=== PATIENT | female | born 1960 | race African-American/Black ===

== ENCOUNTER 2017-03-29 03:00 | Inpatient (IN) | payer MEDICAID ==
[~2017-03-29] VITALS: Ht 172.7 cm; Wt 81.6 kg
[~2017-03-29 03:00] MED LIST: ASPI-1158; DIF15 PO; GUAI600T88 PO; HYDR1TAB4 PO; METH500T PO; NAPR-1176; PROIN3 IH
[2017-03-29] MEDS ORDERED: KETOROLAC 30MG/ML VIAL IV STA (03:35)
[2017-03-29 03:51] LABS: BASOPHILS % 0.9 % (0.0-2.0); EOSINOPHILS % 2.7 % (0.0-5.0); HEMATOCRIT. 36.3 % (36.0-48.0); HEMOGLOBIN. 11.9 g/dL (12.0-16.0); LYMPHOCYTES % 36.4 % (20.0-50.0); MEAN CORPUSCULAR HEMOGLOBIN 33.2 pg (28.0-32.0); MEAN CORPUSCULAR VOLUME 101.7 fL (81.0-99.0); MEAN PLATELET VOLUME 6.8 fl (7.4-10.4); MONOCYTES % 10.7 % (2.0-8.0); NEUTROPHILS % 49.3 % (40.0-76.0); PLATELET 257 x1000/uL (130-400); RED BLOOD CELL COUNT 3.57 mill/uL (4.2-5.4); RED CELL DISTRIBUTION WIDTH 15.6 % (11.6-14.6)
[2017-03-29 04:05] LABS: CARBON DIOXIDE 29 mEq/L (21-32); CHLORIDE 109 mEq/L (98-107); TROPONIN I < 0.02 ng/mL (0.00-0.04)
[2017-03-29] MEDS ORDERED: IOHEXOL-350 100 ML BOTTLE ONE (05:42)
[2017-03-29] MEDS ORDERED: NITROGLYCERIN OINT 1GM/INCH UDPKT TD ONE (06:30)
[2017-03-29 08:00] VITALS: BP 113/68
[2017-03-29 10:49] VITALS: BP 113/68
[2017-03-29] MEDS ORDERED: IMAT100T2 PO (10:49)
[2017-03-29] MEDS ORDERED: PNEUMOCOCCAL 23-VAL P-SAC VAC 0.5 ML IM ONE (11:00)
[2017-03-29] MEDS ORDERED: CLONIDINE 0.1MG TABLET PO PRN (11:45)
[2017-03-29] MEDS ORDERED: ONDANSETRON HCL 4MG/2ML VIAL IV PRN (11:45)
[2017-03-29] MEDS ORDERED: ACETAMINOPHEN 325MG TABLET PO PRN (11:45)
[2017-03-29] MEDS ORDERED: MAGNESIUM/ALUMINUM HYDROXIDE/SIMETHICONE 30ML UDC PO PRN (11:45)
[2017-03-29] MEDS ORDERED: DOCUSATE SODIUM 100MG CAPSULE PO PRN (11:45)
[2017-03-29] MEDS: ENOXAPARIN 40MG/0.4ML SYR SUBCUT SCH (11:54)
[2017-03-29] MEDS: ASPIRIN 81MG EC TABLET PO SCH (11:54)
[2017-03-29] MEDS: HYDROCODONE/ACETAMINOPHEN 5/325MG TABLET PO PRN ×3 (11:55→23:40)
[2017-03-29 12:14] VITALS: BP 126/75
[2017-03-29 15:56] VITALS: BP 126/46
[2017-03-29 16:51] LABS: CARBON DIOXIDE 32 mEq/L (21-32); CHLORIDE 104 mEq/L (98-107)
[2017-03-29 16:58] LABS: CLARITY URINE CLOUDY (CLEAR); COLOR URINE YELLOW (YELLOW); GLUCOSE URINE NEGATIVE (NEGATIVE); KETONES URINE NEGATIVE (NEGATIVE); LEUKOCYTE ESTERASE URINE 1+ (NEGATIVE); NITRITE URINE NEGATIVE (NEGATIVE); OCCULT BLOOD URINE NEGATIVE (NEGATIVE); PH URINE 6.5 (4.5-8.0); PROTEIN URINE NEGATIVE (NEGATIVE); SPECIFIC GRAVITY URINE 1.071 (1.005-1.030)
[2017-03-29 17:07] LABS: CREATINE KINASE 206 IU/L (26-192); TROPONIN I < 0.02 ng/mL (0.00-0.04)
[2017-03-29] MEDS: IPRATROPIUM/ALBUTEROL 0.5-3(2.5)MG/3ML NEB INH PRN (17:09)
[2017-03-29 17:10] LABS: *AMPHETAMINES SCREEN URINE NEGATIVE (NEGATIVE); *BARBITURATES SCREEN URINE NEGATIVE (NEGATIVE); *BENZODIAZEPINES SCREEN URINE NEGATIVE (NEGATIVE); *COCAINE SCREEN URINE NEGATIVE (NEGATIVE); CANNABINOID URINE SCREEN NEGATIVE (NEGATIVE); METHADONE URINE SCREEN NEGATIVE (NEGATIVE); OPIATES URINE SCREEN PRESUMTIVE POSITIVE (NEGATIVE); PHENCYCLIDINE URINE SCREEN NEGATIVE (NEGATIVE)
[2017-03-29 20:00] VITALS: BP 101/65
[2017-03-30] VITALS: BP 109/62
[2017-03-30 00:57] LABS: CREATINE KINASE 215 IU/L (26-192); CREATINE KINASE MB FRACTION 1.7 ng/mL (0.5-3.6); TOTAL IRON BINDING CAPACITY 369 ug/dL (250-450); TROPONIN I < 0.02 ng/mL (0.00-0.04)
[2017-03-30 01:03] LABS: C REACTIVE PROTEIN QUANT 6.1 mg/L (0.0-3.0); HAPTOGLOBIN 73 mg/dL (30-200)
[2017-03-30 04:00] VITALS: BP 137/83
[2017-03-30 08:16] VITALS: BP 128/77
[2017-03-30] MEDS ORDERED: IMATINIB MESYLATE 100 MG PO SCH (09:00)
[2017-03-30] MEDS: ASPIRIN 81MG EC TABLET PO SCH (10:16)
[2017-03-30] MEDS: HYDROCODONE/ACETAMINOPHEN 5/325MG TABLET PO PRN ×2 (10:17→16:15)
[2017-03-30 12:00] VITALS: BP 157/82
[2017-03-30] MEDS: IPRATROPIUM/ALBUTEROL 0.5-3(2.5)MG/3ML NEB INH PRN (12:24)
[2017-03-30] MEDS: ENOXAPARIN 40MG/0.4ML SYR SUBCUT SCH (13:15)
[2017-03-30 16:00] VITALS: BP 114/66
[2017-03-30 19:46] VITALS: BP 126/57
[2017-03-31 00:27] VITALS: BP 102/53
[2017-03-31 04:34] VITALS: BP 112/61
[2017-03-31 06:36] LABS: BASOPHILS % 0.7 % (0.0-2.0); EOSINOPHILS % 2.8 % (0.0-5.0); HEMATOCRIT. 37.1 % (36.0-48.0); HEMOGLOBIN. 12.4 g/dL (12.0-16.0); LYMPHOCYTES % 45.8 % (20.0-50.0); MEAN CORPUSCULAR HEMOGLOBIN 34.4 pg (28.0-32.0); MEAN PLATELET VOLUME 7.2 fl (7.4-10.4); MONOCYTES % 11.1 % (2.0-8.0); NEUTROPHILS % 39.6 % (40.0-76.0); PLATELET 256 x1000/uL (130-400); RED CELL DISTRIBUTION WIDTH 15.6 % (11.6-14.6)
[2017-03-31 06:54] LABS: CHLORIDE 105 mEq/L (98-107); HDL CHOLESTEROL 109 mg/dL (40-59); LDL CHOLESTEROL 75 mg/dL (5-100)
[2017-03-31 07:25] LABS: CARBON DIOXIDE 31 mEq/L (21-32)
[2017-03-31 08:00] VITALS: BP 117/76
[2017-03-31 08:10] VITALS: BP 117/76
[2017-03-31] MEDS: ASPIRIN 81MG EC TABLET PO SCH ×2 (08:45→08:49)
[2017-03-31 10:01] LABS: FOLIC ACID (FOLATE) SERUM 17.2 ng/mL (>5.38)
== END 2017-03-31 09:30 | disposition left against medical advice (07) | DRG 203 ==
LOC: ER 03:01 → 6WST 05:27 → EDBEDREQ 05:30 → EDBEDREQTM 05:30 → ENRESERV 07:03
PROVIDERS: ADMIT Internal Medicine; ATTEND Internal Medicine
DX: M94.0 Chondrocostal junction syndrome [Tietze] (principal); C92.10 Chronic myeloid leukemia, BCR/ABL-positive, not having achieved remission; I24.9 Acute ischemic heart disease, unspecified; N28.1 Cyst of kidney, acquired; N39.0 Urinary tract infection, site not specified; D63.8 Anemia in other chronic diseases classified elsewhere; Z53.21 Procedure and treatment not carried out due to patient leaving prior to being seen by health care provider; J44.9 Chronic obstructive pulmonary disease, unspecified; Z79.82 Long term (current) use of aspirin; Z82.49 Family history of ischemic heart disease and other diseases of the circulatory system; Z88.5 Allergy status to narcotic agent; Z80.9 Family history of malignant neoplasm, unspecified; Z79.899 Other long term (current) drug therapy
CPT/HCPCS: 36415; 71010; 71275; 76700; 80048; 80053; 80061; 80305; 81001; 82247; 82248; 82550; 82553; 82607; 82728; 82746; 82784; 83010; 83540; 83550; 83615; 83735; 83880; 84443; 84484; 85025; 85044; 85651; 86140; 87086; 93005; 93306; 93970; 94640; 96374; 99285; J1650; J1885; J7620; Q9967

== ENCOUNTER 2018-08-20 08:19 | Inpatient (IN) | payer MEDICAID ==
[~2018-08-20] VITALS: Ht 172.7 cm; Wt 111.3 kg
[~2018-08-20 08:19] MED LIST changes: -DIF15 PO; -GUAI600T88 PO; +IMAT100T2 PO; -METH500T PO
[2018-08-20] MEDS ORDERED: ASPIRIN 81MG TABLET PO ONE (08:45)
[2018-08-20 08:57] LABS: BASOPHILS % 0.6 % (0.0-2.0); EOSINOPHILS % 1.6 % (0.0-5.0); HEMOGLOBIN. 13.5 g/dL (12.0-16.0); LYMPHOCYTES % 17.5 % (20.0-50.0); MEAN CORPUSCULAR HEMOGLOBIN 33.8 pg (28.0-32.0); MEAN CORPUSCULAR VOLUME 100.1 fL (81.0-99.0); MEAN PLATELET VOLUME 6.9 fl (7.4-10.4); MONOCYTES % 11.1 % (2.0-8.0); NEUTROPHILS % 69.2 % (40.0-76.0); PLATELET 296 x1000/uL (130-400); RED CELL DISTRIBUTION WIDTH 15.2 % (11.6-14.6)
[2018-08-20 09:03] LABS: CHLORIDE 111 mEq/L (98-107)
[2018-08-20 09:07] LABS: D-DIMER 1.38 mg/L FEU (<0.50); PARTIAL THROMBOPLASTIN TIME 28.2 sec (23.4-31.0); PROTHROMBIN TIME 10.3 sec (9.6-11.0)
[2018-08-20] MEDS: NITROGLYCERIN 0.4MG TABLET SL SL PRN ×2 (09:48→11:28)
[2018-08-20] MEDS ORDERED: IPRATROPIUM/ALBUTEROL 0.5-3(2.5)MG/3ML NEB INH PRN (10:15)
[2018-08-20] MEDS ORDERED: GUAIFENESIN 200MG/10ML SUGAR FREE UDC PO PRN (10:15)
[2018-08-20] MEDS ORDERED: DOCUSATE SODIUM 100MG CAPSULE PO PRN (10:15)
[2018-08-20] MEDS ORDERED: MAGNESIUM/ALUMINUM HYDROXIDE/SIMETHICONE 30ML UDC PO PRN (10:15)
[2018-08-20] MEDS ORDERED: DIPHENHYDRAMINE 50MG/ML VIAL IV PRN (10:15)
[2018-08-20] MEDS ORDERED: CLONIDINE 0.1MG TABLET PO PRN (10:15)
[2018-08-20] MEDS ORDERED: IOHEXOL-350 100 ML BOTTLE ONE (10:21)
[2018-08-20 10:24] LABS: PHOSPHORUS 2.6 mg/dL (2.5-4.9)
[2018-08-20] MEDS ORDERED: ENOXAPARIN 40MG/0.4ML SYR SUBCUT SCH (11:00)
[2018-08-20] MEDS: ENOXAPARIN 30MG/0.3ML SYR SUBCUT SCH ×2 (11:41→21:02)
[2018-08-20] MEDS: ACETAMINOPHEN 325MG TABLET PO PRN ×3 (11:42→17:43)
[2018-08-20 13:15] VITALS: BP 143/89
[2018-08-20 13:30] VITALS: BP 143/89
[2018-08-20] MEDS ORDERED: NIFE30TA83 PO (15:43)
[2018-08-20 16:22] VITALS: BP 132/69
[2018-08-20] MEDS: ONDANSETRON HCL 4MG/2ML INJ IV PRN (16:30)
[2018-08-20] MEDS: MORPHINE SULFATE 4 MG/ML CPJ (NOT FOR IM USE) IV PRN ×2 (16:34→21:03)
[2018-08-20] MEDS ORDERED: IMAT100T9 PO (16:46)
[2018-08-20 20:00] VITALS: BP 124/74
[2018-08-21] VITALS (7 sets, daily range): BP systolic 112–144; BP diastolic 77–89
[2018-08-21] MEDS: MORPHINE SULFATE 4 MG/ML CPJ (NOT FOR IM USE) IV PRN ×5 (01:20→23:02)
[2018-08-21 06:25] LABS: BASOPHILS % 0.8 % (0.0-2.0); EOSINOPHILS % 2.1 % (0.0-5.0); HEMATOCRIT. 38.3 % (36.0-48.0); HEMOGLOBIN. 12.9 g/dL (12.0-16.0); MEAN CORPUSCULAR HEMOGLOBIN 33.7 pg (28.0-32.0); MEAN CORPUSCULAR VOLUME 100.3 fL (81.0-99.0); MONOCYTES % 13.5 % (2.0-8.0); NEUTROPHILS % 51.6 % (40.0-76.0); PLATELET 265 x1000/uL (130-400); RED BLOOD CELL COUNT 3.82 mill/uL (4.2-5.4); RED CELL DISTRIBUTION WIDTH 15.3 % (11.6-14.6)
[2018-08-21 06:38] LABS: CHLORIDE 107 mEq/L (98-107)
[2018-08-21 06:51] LABS: HDL CHOLESTEROL 97 mg/dL (40-59)
[2018-08-21 07:10] LABS: LDL CHOLESTEROL 78 mg/dL (5-100)
[2018-08-21] MEDS: ENOXAPARIN 30MG/0.3ML SYR SUBCUT SCH ×2 (08:31→20:49)
[2018-08-21] MEDS: ONDANSETRON HCL 4MG/2ML INJ IV PRN ×3 (08:31→14:07)
[2018-08-21] MEDS: IMATINIB MESYLATE 100 MG TABLET PO SCH (08:31)
[2018-08-22] VITALS: BP 140/83
[2018-08-22 04:00] VITALS: BP 118/87
[2018-08-22 08:00] VITALS: BP 122/95
[2018-08-22] MEDS: ENOXAPARIN 30MG/0.3ML SYR SUBCUT SCH (08:11)
[2018-08-22] MEDS: IMATINIB MESYLATE 100 MG TABLET PO SCH (08:11)
[2018-08-22] MEDS ORDERED: ASPIRIN 81MG TABLET PO SCH (09:00)
[2018-08-22] MEDS ORDERED: REGADENOSON 0.4 MG/5 ML IV ONE ×2 (09:18→13:15)
[2018-08-22 11:20] VITALS: BP 122/95
== END 2018-08-22 11:55 | disposition home or self-care (01) | DRG 203 ==
LOC: ER 08:36 → 8WST 10:43 → EDBEDREQ 10:46 → ENRESERV 12:07
PROVIDERS: ADMIT Internal Medicine; ATTEND Internal Medicine
DX: M94.0 Chondrocostal junction syndrome [Tietze] (principal); C92.10 Chronic myeloid leukemia, BCR/ABL-positive, not having achieved remission; D70.9 Neutropenia, unspecified; E87.8 Other disorders of electrolyte and fluid balance, not elsewhere classified; E83.51 Hypocalcemia; K76.0 Fatty (change of) liver, not elsewhere classified; R06.02 Shortness of breath; I10 Essential (primary) hypertension; J45.909 Unspecified asthma, uncomplicated; R79.1 Abnormal coagulation profile; Z82.49 Family history of ischemic heart disease and other diseases of the circulatory system; Z92.21 Personal history of antineoplastic chemotherapy; Z79.899 Other long term (current) drug therapy; Z79.82 Long term (current) use of aspirin; Z88.5 Allergy status to narcotic agent
CPT/HCPCS: 36415; 71045; 71275; 80061; 83735; 83880; 84100; 84443; 84484; 85379; 93005; 93306; 93970; 96374; 97161; 99285; J1650; J2270; J2405; J2785; Q9967

== ENCOUNTER 2018-09-10 17:02 | Inpatient (IN) | payer MEDICAID ==
[~2018-09-10] VITALS: Ht 172.7 cm; Wt 109.3 kg
[~2018-09-10 17:02] MED LIST changes: -IMAT100T2 PO; +IMAT100T9 PO; +NIFE30TA83 PO
[2018-09-10] MEDS ORDERED: ONDANSETRON HCL 4MG/2ML INJ IV STA (17:21)
[2018-09-10] MEDS ORDERED: SODIUM CHLORIDE 0.9% 1,000 ML IV ONE (17:21)
[2018-09-10 17:31] LABS: BASOPHILS % 0.5 % (0.0-2.0); EOSINOPHILS % 0.4 % (0.0-5.0); HEMATOCRIT. 36.3 % (36.0-48.0); HEMOGLOBIN. 12.2 g/dL (12.0-16.0); LYMPHOCYTES % 12.4 % (20.0-50.0); MEAN CORPUSCULAR HEMOGLOBIN 34.1 pg (28.0-32.0); MEAN CORPUSCULAR VOLUME 101.6 fL (81.0-99.0); MEAN PLATELET VOLUME 7.6 fl (7.4-10.4); MONOCYTES % 6.3 % (2.0-8.0); NEUTROPHILS % 80.4 % (40.0-76.0); PLATELET 243 x1000/uL (130-400); RED BLOOD CELL COUNT 3.58 mill/uL (4.2-5.4); RED CELL DISTRIBUTION WIDTH 16.8 % (11.6-14.6)
[2018-09-10 17:36] LABS: CHLORIDE 102 mEq/L (98-107)
[2018-09-10 17:39] LABS: CLARITY URINE TURBID (CLEAR); COLOR URINE YELLOW (YELLOW); KETONES URINE 1+ (NEGATIVE); LEUKOCYTE ESTERASE URINE 3+ (NEGATIVE); NITRITE URINE NEGATIVE (NEGATIVE); OCCULT BLOOD URINE TRACE (NEGATIVE); PH URINE 5.5 (4.5-8.0); PROTEIN URINE NEGATIVE (NEGATIVE); SPECIFIC GRAVITY URINE 1.006 (1.005-1.030); UROBILINOGEN URINE 0.2 E.U./dL (0.2-1.0)
[2018-09-10 17:40] LABS: ETHANOL BLOOD 21 mg/dL
[2018-09-10 17:43] LABS: LDL CHOLESTEROL 79 mg/dL (5-100)
[2018-09-10 17:51] LABS: CANNABINOID URINE SCREEN NEGATIVE (NEGATIVE); OPIATES URINE SCREEN NEGATIVE (NEGATIVE); PHENCYCLIDINE URINE SCREEN NEGATIVE (NEGATIVE)
[2018-09-10 17:52] LABS: *AMPHETAMINES SCREEN URINE NEGATIVE (NEGATIVE); *BARBITURATES SCREEN URINE NEGATIVE (NEGATIVE); *BENZODIAZEPINES SCREEN URINE NEGATIVE (NEGATIVE); *COCAINE SCREEN URINE NEGATIVE (NEGATIVE); METHADONE URINE SCREEN NEGATIVE (NEGATIVE)
[2018-09-10] MEDS ORDERED: ASPIRIN 325MG TABLET PO ONE (18:30)
[2018-09-10] MEDS ORDERED: KETOROLAC 30MG/ML VIAL IV ONE (19:00)
[2018-09-10] MEDS ORDERED: MORPHINE SULFATE 4 MG/ML CPJ (NOT FOR IM USE) IV ONE (19:00)
[2018-09-10] MEDS ORDERED: CEFTRIAXONE 1 G PREMIX 50 ML IV ONE (19:00)
[2018-09-10] MEDS ORDERED: HYDROCODONE/ACETAMINOPHEN 5/325MG TABLET PO ONE (21:50)
[2018-09-10 22:30] VITALS: BP 113/65
[2018-09-10 22:49] VITALS: BP 113/65
[2018-09-11 04:00] VITALS: BP 97/48
[2018-09-11 08:00] VITALS: BP 110/65
[2018-09-11 09:17] LABS: BASOPHILS % 0.7 % (0.0-2.0); EOSINOPHILS % 1.4 % (0.0-5.0); HEMATOCRIT. 32.3 % (36.0-48.0); LYMPHOCYTES % 12.3 % (20.0-50.0); MEAN CORPUSCULAR HEMOGLOBIN 34.8 pg (28.0-32.0); MEAN CORPUSCULAR VOLUME 101.8 fL (81.0-99.0); MEAN PLATELET VOLUME 7.8 fl (7.4-10.4); MONOCYTES % 10.5 % (2.0-8.0); NEUTROPHILS % 75.1 % (40.0-76.0); PLATELET 204 x1000/uL (130-400); RED BLOOD CELL COUNT 3.17 mill/uL (4.2-5.4); RED CELL DISTRIBUTION WIDTH 17.6 % (11.6-14.6)
[2018-09-11 10:02] LABS: CHLORIDE 106 mEq/L (98-107)
[2018-09-11 10:10] LABS: CREATINE KINASE 359 IU/L (26-192)
[2018-09-11 10:13] LABS: CREATINE KINASE MB FRACTION 2.3 ng/mL (0.5-3.6)
[2018-09-11] MEDS: HYDROCODONE/ACETAMINOPHEN 5/325MG TABLET PO PRN ×3 (11:41→22:48)
[2018-09-11] MEDS: THIAMINE HCL 100MG TABLET PO SCH (11:50)
[2018-09-11] MEDS: MULTIVITAMINS,THER W-MINERALS TABLET PO SCH (11:50)
[2018-09-11] MEDS: FOLIC ACID 1MG TABLET PO SCH (11:50)
[2018-09-11] MEDS: CLOPIDOGREL 75MG TABLET PO SCH (11:50)
[2018-09-11 12:00] VITALS: BP 116/78
[2018-09-11] MEDS ORDERED: CLONIDINE 0.1MG TABLET PO PRN (12:00)
[2018-09-11] MEDS ORDERED: LORAZEPAM 2MG/ML CPJ IV SCH (13:30)
[2018-09-11] MEDS: ENOXAPARIN 30MG/0.3ML SYR SUBCUT SCH (15:22)
[2018-09-11 16:00] VITALS: BP 165/98
[2018-09-11 20:00] VITALS: BP 115/68
[2018-09-11 22:10] LABS: T4 FREE 1.07 ng/dL (0.76-1.46)
[2018-09-11 23:06] LABS: VITAMIN B12 SERUM 197 pg/mL (211-911)
[2018-09-11 23:11] LABS: FOLIC ACID (FOLATE) SERUM > 20.00 ng/mL (>5.38)
[2018-09-11 23:49] VITALS: BP 98/71
[2018-09-12 08:00] VITALS: BP 106/65
[2018-09-12] MEDS: MULTIVITAMINS,THER W-MINERALS TABLET PO SCH (09:07)
[2018-09-12] MEDS: CLOPIDOGREL 75MG TABLET PO SCH (09:07)
[2018-09-12] MEDS: THIAMINE HCL 100MG TABLET PO SCH (09:08)
[2018-09-12] MEDS: ENOXAPARIN 30MG/0.3ML SYR SUBCUT SCH ×2 (09:08→20:42)
[2018-09-12] MEDS: FOLIC ACID 1MG TABLET PO SCH (09:08)
[2018-09-12 09:29] LABS: LDL CHOLESTEROL 67 mg/dL (5-100)
[2018-09-12 09:31] LABS: CREATINE KINASE 296 IU/L (26-192); HDL CHOLESTEROL 101 mg/dL (40-59)
[2018-09-12 09:32] LABS: CREATINE KINASE MB FRACTION 1.5 ng/mL (0.5-3.6)
[2018-09-12] MEDS ORDERED: LORAZEPAM 2MG/ML CPJ IV NR (10:00)
[2018-09-12 12:00] VITALS: BP 110/65
[2018-09-12] MEDS: HYDROCODONE/ACETAMINOPHEN 5/325MG TABLET PO PRN ×2 (15:40→20:43)
[2018-09-12 16:00] VITALS: BP 115/68
[2018-09-12 20:00] VITALS: BP 116/76
[2018-09-13] VITALS: BP 118/68
[2018-09-13 04:00] VITALS: BP 110/56
[2018-09-13 08:59] VITALS: BP 95/64
[2018-09-13] MEDS ORDERED: CYANOCOBALAMIN 1000MCG/ML VIAL IM SCH (09:00)
[2018-09-13] MEDS: ENOXAPARIN 30MG/0.3ML SYR SUBCUT SCH (09:01)
[2018-09-13] MEDS: MULTIVITAMINS,THER W-MINERALS TABLET PO SCH (09:01)
[2018-09-13] MEDS: CLOPIDOGREL 75MG TABLET PO SCH (09:01)
[2018-09-13] MEDS: THIAMINE HCL 100MG TABLET PO SCH (09:01)
[2018-09-13] MEDS: FOLIC ACID 1MG TABLET PO SCH (09:01)
[2018-09-13] MEDS: HYDROCODONE/ACETAMINOPHEN 5/325MG TABLET PO PRN (09:28)
[2018-09-13 12:39] VITALS: BP 115/81
[2018-09-13 13:08] VITALS: BP 115/81
[2018-09-13] MEDS ORDERED: ATORVASTATIN CALCIUM 10MG TABLET PO SCH (21:00)
== END 2018-09-13 14:58 | disposition home or self-care (01) | DRG 47 ==
LOC: ER 17:02 → 6WST 21:14 → EDBEDREQTM 21:15 → EDBEDREQSVC 21:15 → EDBEDREQ 21:15 → ENRESERV 21:33
PROVIDERS: ADMIT Internal Medicine; ATTEND Internal Medicine
DX: G45.9 Transient cerebral ischemic attack, unspecified (principal); C92.10 Chronic myeloid leukemia, BCR/ABL-positive, not having achieved remission; I10 Essential (primary) hypertension; R60.0 Localized edema; J45.909 Unspecified asthma, uncomplicated; F10.220 Alcohol dependence with intoxication, uncomplicated; Y90.1 Blood alcohol level of 20-39 mg/100 ml; E53.8 Deficiency of other specified B group vitamins; F80.81 Childhood onset fluency disorder; Z86.73 Personal history of transient ischemic attack (TIA), and cerebral infarction without residual deficits
CPT/HCPCS: 36415; 70544; 70553; 71045; 80061; 80305; 80320; 82550; 82553; 82607; 82746; 82962; 83036; 83721; 83880; 84439; 84443; 84481; 84484; 92523; 92610; 93005; 93880; 93971; 96374; 96375; 97116; 97162; 97166; 99285; J0696; J1650; J1885; J2060; J2270; J2405; J3420; J7030; G0480

== ENCOUNTER 2018-11-11 06:44 | Emergency (ER) | payer MEDICAID ==
[~2018-11-11] VITALS: Ht 165.1 cm; Wt 96.0 kg
[~2018-11-11 06:44] MED LIST changes: -NAPR-1176
[2018-11-11] MEDS ORDERED: SODIUM CHLORIDE 0.9% 1,000 ML IV ONE (06:58)
[2018-11-11 07:59] LABS: CLARITY URINE CLEAR (CLEAR); COLOR URINE YELLOW (YELLOW); KETONES URINE 1+ (NEGATIVE); LEUKOCYTE ESTERASE URINE 1+ (NEGATIVE); NITRITE URINE NEGATIVE (NEGATIVE); OCCULT BLOOD URINE NEGATIVE (NEGATIVE); PROTEIN URINE TRACE (NEGATIVE); SPECIFIC GRAVITY URINE 1.011 (1.005-1.030)
[2018-11-11 08:35] LABS: BASOPHILS % 1.4 % (0.0-2.0); EOSINOPHILS % 1.1 % (0.0-5.0); HEMATOCRIT. 38.7 % (36.0-48.0); HEMOGLOBIN. 13.5 g/dL (12.0-16.0); LYMPHOCYTES % 22.4 % (20.0-50.0); MEAN CORPUSCULAR HEMOGLOBIN 37.2 pg (28.0-32.0); MEAN CORPUSCULAR VOLUME 106.8 fL (81.0-99.0); MEAN PLATELET VOLUME 7.7 fl (7.4-10.4); NEUTROPHILS % 65.1 % (40.0-76.0); PLATELET 308 x1000/uL (130-400); RED BLOOD CELL COUNT 3.63 mill/uL (4.2-5.4); RED CELL DISTRIBUTION WIDTH 19.3 % (11.6-14.6)
[2018-11-11 08:41] LABS: CHLORIDE 104 mEq/L (98-107)
[2018-11-11] MEDS ORDERED: METOCLOPRAMIDE HCL 10MG/2ML VIAL IV ONE (08:45)
[2018-11-11] MEDS ORDERED: KETOROLAC 30MG/ML VIAL IV ONE (08:45)
[2018-11-11 09:49] VITALS: BP 128/85
== END 2018-11-11 10:07 | disposition home or self-care (01) ==
LOC: ER 06:44
DX: R51 Headache (principal); R20.2 Paresthesia of skin; J45.909 Unspecified asthma, uncomplicated; I10 Essential (primary) hypertension; Z98.890 Other specified postprocedural states; Z79.899 Other long term (current) drug therapy; Z80.6 Family history of leukemia; Z85.6 Personal history of leukemia; Z85.819 Personal history of malignant neoplasm of unspecified site of lip, oral cavity, and pharynx
CPT/HCPCS: 36415; 70450; 71045; 80053; 81003; 85025; 85610; 96374; 96375; 99284; J1885; J2765; J7030

== ENCOUNTER 2018-11-13 13:09 | Inpatient (IN) | payer MEDICAID ==
[~2018-11-13] VITALS: Ht 172.7 cm; Wt 99.8 kg
[2018-11-13] MEDS ORDERED: METHYLPREDNISOLONE SOD SUCC 125 MG/2 ML VIAL IV STA (13:42)
[2018-11-13] MEDS ORDERED: ONDANSETRON HCL 4MG/2ML INJ IV ONE (13:45)
[2018-11-13] MEDS ORDERED: IPRATROPIUM/ALBUTEROL 0.5-3(2.5)MG/3ML NEB HHN ONE (13:45)
[2018-11-13] MEDS ORDERED: MORPHINE SULFATE 4 MG/ML CPJ (NOT FOR IM USE) IV ONE (13:45)
[2018-11-13] MEDS ORDERED: LEVOFLOXACIN 750MG PREMIX 150 ML IV ONE (13:45)
[2018-11-13 14:13] LABS: EOSINOPHILS % 0.9 % (0.0-5.0); HEMOGLOBIN. 13.4 g/dL (12.0-16.0); LYMPHOCYTES % 16.4 % (20.0-50.0); MEAN CORPUSCULAR HEMOGLOBIN 36.7 pg (28.0-32.0); MEAN CORPUSCULAR VOLUME 106.7 fL (81.0-99.0); MEAN PLATELET VOLUME 7.9 fl (7.4-10.4); MONOCYTES % 9.7 % (2.0-8.0); PLATELET 303 x1000/uL (130-400); RED BLOOD CELL COUNT 3.65 mill/uL (4.2-5.4); RED CELL DISTRIBUTION WIDTH 19.2 % (11.6-14.6)
[2018-11-13 14:20] LABS: CHLORIDE 104 mEq/L (98-107)
[2018-11-13 14:21] LABS: PROTHROMBIN TIME 9.9 sec (9.6-11.0)
[2018-11-13] MEDS ORDERED: NITROGLYCERIN 0.4MG TABLET SL SL PRN (15:00)
[2018-11-13] MEDS ORDERED: ASPIRIN 81MG TABLET PO ONE (15:00)
[2018-11-13 15:25] LABS: CLARITY URINE CLOUDY (CLEAR); COLOR URINE YELLOW (YELLOW); KETONES URINE 1+ (NEGATIVE); LEUKOCYTE ESTERASE URINE 2+ (NEGATIVE); NITRITE URINE NEGATIVE (NEGATIVE); OCCULT BLOOD URINE TRACE (NEGATIVE); PH URINE 6.5 (4.5-8.0); PROTEIN URINE NEGATIVE (NEGATIVE); SPECIFIC GRAVITY URINE 1.009 (1.005-1.030)
[2018-11-13] MEDS ORDERED: IMAT400T2 PO (19:49)
[2018-11-13] MEDS ORDERED: IMAT400T2 MT (19:49)
[2018-11-13 20:00] VITALS: BP 140/82
[2018-11-13] MEDS ORDERED: MORPHINE SULFATE 2 MG/ML CPJ (NOT FOR IM USE) IV PRN (20:45)
[2018-11-13] MEDS ORDERED: ENOXAPARIN 30MG/0.3ML SYR SUBCUT SCH (21:00)
[2018-11-13] MEDS: BACLOFEN 10MG TABLET PO SCH (21:53)
[2018-11-13] MEDS: METOPROLOL TARTRATE 50MG TABLET PO SCH (21:53)
[2018-11-13] MEDS: ENOXAPARIN 30MG/0.3ML SYR SUBCUT SCH (21:58)
[2018-11-13] MEDS: NITROGLYCERIN OINT 1GM/INCH UDPKT TD SCH (22:00)
[2018-11-14] VITALS: BP 132/86
[2018-11-14] MEDS: IPRATROPIUM/ALBUTEROL 0.5-3(2.5)MG/3ML NEB HHN SCH ×3 (01:07→08:45)
[2018-11-14 04:00] VITALS: BP 121/69
[2018-11-14] MEDS: BACLOFEN 10MG TABLET PO SCH (05:07)
[2018-11-14] MEDS: NITROGLYCERIN OINT 1GM/INCH UDPKT TD SCH (05:08)
[2018-11-14 08:39] VITALS: BP 114/72
[2018-11-14] MEDS ORDERED: ASPIRIN 325MG EC TABLET PO SCH (09:00)
[2018-11-14] MEDS: ENOXAPARIN 30MG/0.3ML SYR SUBCUT SCH (09:00)
[2018-11-14] MEDS: METOPROLOL TARTRATE 50MG TABLET PO SCH (09:32)
[2018-11-14 09:42] LABS: HEMATOCRIT. 36.8 % (36.0-48.0); HEMOGLOBIN. 12.5 g/dL (12.0-16.0); MEAN CORPUSCULAR HEMOGLOBIN 36.8 pg (28.0-32.0); MEAN CORPUSCULAR VOLUME 108.6 fL (81.0-99.0); MEAN PLATELET VOLUME 7.7 fl (7.4-10.4); PLATELET 271 x1000/uL (130-400); RED BLOOD CELL COUNT 3.39 mill/uL (4.2-5.4); RED CELL DISTRIBUTION WIDTH 19.9 % (11.6-14.6)
[2018-11-14 09:53] LABS: CHLORIDE 105 mEq/L (98-107)
[2018-11-14 10:04] LABS: LDL CHOLESTEROL 98 mg/dL (5-100)
[2018-11-14 10:06] LABS: HDL CHOLESTEROL 107 mg/dL (40-59)
[2018-11-14] MEDS ORDERED: BENZONATATE 100MG CAPSULE PO PRN (10:30)
[2018-11-14] MEDS ORDERED: METHYLPREDNISOLONE SOD SUCC 40 MG/ML VIAL IV SCH (11:00)
[2018-11-14 12:02] VITALS: BP 112/73
[2018-11-14 12:21] VITALS: BP 112/73
[2018-11-14] MEDS ORDERED: FLUCONAZOLE 150MG TABLET PO NR (13:00)
[2018-11-14 13:04] LABS: PLATELET ESTIMATE NORMAL
[2018-11-14 14:58] LABS: *AMPHETAMINES SCREEN URINE NEGATIVE (NEGATIVE); *BARBITURATES SCREEN URINE NEGATIVE (NEGATIVE); *BENZODIAZEPINES SCREEN URINE NEGATIVE (NEGATIVE); *COCAINE SCREEN URINE NEGATIVE (NEGATIVE); METHADONE URINE SCREEN NEGATIVE (NEGATIVE); OPIATES URINE SCREEN PRESUMTIVE POSITIVE (NEGATIVE)
[2018-11-14 14:59] LABS: CANNABINOID URINE SCREEN NEGATIVE (NEGATIVE); PHENCYCLIDINE URINE SCREEN NEGATIVE (NEGATIVE)
== END 2018-11-14 12:30 | disposition home or self-care (01) | DRG 133 ==
LOC: ER 14:13 → EDBEDREQ 16:09 → EDBEDREQTM 16:09 → ENRESERV 17:19 → ER 18:42 → CANBEDREQ 18:48 → 8WST 20:27
PROVIDERS: ADMIT Internal Medicine; ATTEND Internal Medicine
DX: J96.01 Acute respiratory failure with hypoxia (principal); C95.90 Leukemia, unspecified not having achieved remission; M94.0 Chondrocostal junction syndrome [Tietze]; I10 Essential (primary) hypertension; J45.901 Unspecified asthma with (acute) exacerbation; E66.9 Obesity, unspecified; Z86.73 Personal history of transient ischemic attack (TIA), and cerebral infarction without residual deficits; Z68.33 Body mass index [BMI] 33.0-33.9, adult; Z71.3 Dietary counseling and surveillance; Z79.899 Other long term (current) drug therapy; Z80.9 Family history of malignant neoplasm, unspecified; Z82.49 Family history of ischemic heart disease and other diseases of the circulatory system; Z79.82 Long term (current) use of aspirin
CPT/HCPCS: 36415; 71045; 80048; 80061; 80305; 83605; 83880; 84484; 93005; 94640; 96365; 96366; 96375; 99285; J1650; J1956; J2270; J2405; J2930; J7620

== ENCOUNTER 2019-08-01 10:16 | Inpatient (IN) | payer MEDICAID ==
[~2019-08-01] VITALS: Ht 172.7 cm; Wt 113.4 kg
[~2019-08-01 10:16] MED LIST changes: -ASPI-1158; +ASPI-1158 PO; +IMAT400T2 MT; +IMAT400T2 PO; +NIFE-33 PO; -NIFE30TA83 PO
[2019-08-01] MEDS ORDERED: SODIUM CHLORIDE 0.9% 500 ML IV ONE (10:46)
[2019-08-01] MEDS ORDERED: MORPHINE SULFATE 4 MG/ML CPJ (NOT FOR IM USE) IV STA (10:46)
[2019-08-01] MEDS ORDERED: ONDANSETRON HCL 4MG/2ML INJ IV STA (10:46)
[2019-08-01 11:13] LABS: BG BASE EXCESS -12.5 mmol/L (-2.0-2.0); BG CARBOXYHEMOGLOBIN 0.5 % (0.5-1.5); BG DEOXYHEMOGLOBIN 1.3 % (0.0-5.0); BG FRACTION INSPIRED OXYGEN 21; BG HCO3 ACT 6.5 mmol/L (22.0-26.0); BG METHEMOGLOBIN 0.6 % (0.0-1.5); BG OXYGEN SATURATION 98.7 % (92.0-98.5); BG OXYHEMOGLOBIN 97.6 % (94.0-97.0); BG PCO2 8.9 mmHg (35.0-45.0); BG PH 7.482 (7.350-7.450); BG PO2 144.3 mmHg (75.0-100.0); BG SAMPLE SITE RIGHT BRACHIAL; BG TOTAL HEMOGLOBIN 15.2 g/dL (12.0-18.0); BG VENT MODE ROOM AIR
[2019-08-01 11:15] LABS: BASOPHILS % 1.1 % (0.0-2.0); EOSINOPHILS % 0.3 % (0.0-5.0); HEMATOCRIT. 45.9 % (36.0-48.0); HEMOGLOBIN. 15.6 g/dL (12.0-16.0); LYMPHOCYTES % 23.4 % (20.0-50.0); MEAN CORPUSCULAR HEMOGLOBIN 36.9 pg (28.0-32.0); MEAN CORPUSCULAR VOLUME 108.5 fL (81.0-99.0); MEAN PLATELET VOLUME 8.3 fl (7.4-10.4); MONOCYTES % 9.6 % (2.0-8.0); NEUTROPHILS % 65.6 % (40.0-76.0); PLATELET 430 x1000/uL (130-400); RED BLOOD CELL COUNT 4.23 mill/uL (4.2-5.4); RED CELL DISTRIBUTION WIDTH 20.8 % (11.6-14.6)
[2019-08-01 11:27] LABS: CHLORIDE 100 mEq/L (98-107)
[2019-08-01 11:33] LABS: PROTHROMBIN TIME 10.6 sec (9.6-11.0)
[2019-08-01] MEDS ORDERED: PIPERACILLIN/TAZ 3.375G PREMIX 50 ML IV ONE (11:45)
[2019-08-01] MEDS ORDERED: VANCOMYCIN 1 G PREMIX 200 ML IV ONE (11:45)
[2019-08-01 12:16] LABS: CLARITY URINE CLEAR (CLEAR); COLOR URINE YELLOW (YELLOW); KETONES URINE 4+ (NEGATIVE); LEUKOCYTE ESTERASE URINE NEGATIVE (NEGATIVE); NITRITE URINE NEGATIVE (NEGATIVE); OCCULT BLOOD URINE NEGATIVE (NEGATIVE); PROTEIN URINE TRACE (NEGATIVE); SPECIFIC GRAVITY URINE 1.015 (1.005-1.030); UROBILINOGEN URINE 0.2 E.U./dL (0.2-1.0)
[2019-08-01] MEDS ORDERED: ALBUTEROL 6.7GM HFA INHALER ORI PRN (12:30)
[2019-08-01] MEDS ORDERED: BENZONATATE 100MG CAPSULE PO PRN (12:30)
[2019-08-01] MEDS ORDERED: PIPERACILLIN/TAZOBACTAM 3.375 G in DEXT 5% WATER 100 ML IV SCH ×2 (12:30→18:00)
[2019-08-01] MEDS ORDERED: ACETAMINOPHEN 325MG TABLET PO PRN (12:30)
[2019-08-01] MEDS: ONDANSETRON HCL 4MG/2ML INJ IV PRN ×2 (13:22→20:54)
[2019-08-01 15:00] VITALS: BP 138/62
[2019-08-01] MEDS ORDERED: IPRATROPIUM/ALBUTEROL 0.5-3(2.5)MG/3ML NEB HHN PRN (15:15)
[2019-08-01] MEDS ORDERED: HYDROCODONE/ACETAMINOPHEN 5/325MG TABLET PO PRN (18:30)
[2019-08-01 20:00] VITALS: BP 124/74
[2019-08-01] MEDS: MORPHINE SULFATE 2 MG/ML CPJ (NOT FOR IM USE) IV PRN (20:53)
[2019-08-01] MEDS: MEROPENEM-0.9% SODIUM CHLORIDE 50 ML IV SCH (21:05)
[2019-08-02] VITALS (7 sets, daily range): BP systolic 111–145; BP diastolic 72–85
[2019-08-02] MEDS: ONDANSETRON HCL 4MG/2ML INJ IV PRN ×4 (01:51→23:06)
[2019-08-02] MEDS: MORPHINE SULFATE 2 MG/ML CPJ (NOT FOR IM USE) IV PRN ×5 (01:53→23:07)
[2019-08-02] MEDS: MEROPENEM-0.9% SODIUM CHLORIDE 50 ML IV SCH ×3 (04:32→20:38)
[2019-08-02] MEDS ORDERED: BENZ-16 MT (13:23)
[2019-08-02] MEDS ORDERED: METO-293 MT (13:25)
[2019-08-03] VITALS: BP 127/76
[2019-08-03] MEDS: IPRATROPIUM/ALBUTEROL 0.5-3(2.5)MG/3ML NEB HHN SCH (03:08)
[2019-08-03 04:00] VITALS: BP 128/73
[2019-08-03] MEDS: MEROPENEM-0.9% SODIUM CHLORIDE 50 ML IV SCH ×3 (04:46→21:02)
[2019-08-03] MEDS: ONDANSETRON HCL 4MG/2ML INJ IV PRN ×3 (04:46→22:58)
[2019-08-03] MEDS: MORPHINE SULFATE 2 MG/ML CPJ (NOT FOR IM USE) IV PRN ×4 (04:47→21:02)
[2019-08-03 08:00] VITALS: BP 125/73
[2019-08-03 12:00] VITALS: BP 124/76
[2019-08-03] MEDS ORDERED: IOHEXOL-300 100 ML BOTTLE ONE (14:50)
[2019-08-03 16:00] VITALS: BP 104/79
[2019-08-03 20:00] VITALS: BP 144/84
[2019-08-03] MEDS: GUAIFENESIN 600MG ER TABLET PO SCH (21:02)
[2019-08-04] VITALS: BP 106/76
[2019-08-04] MEDS: MORPHINE SULFATE 2 MG/ML CPJ (NOT FOR IM USE) IV PRN ×3 (01:03→08:59)
[2019-08-04 04:00] VITALS: BP 111/70
[2019-08-04] MEDS: MEROPENEM-0.9% SODIUM CHLORIDE 50 ML IV SCH (04:25)
[2019-08-04] MEDS: ONDANSETRON HCL 4MG/2ML INJ IV PRN (05:02)
[2019-08-04 08:00] VITALS: BP 119/74
[2019-08-04 08:33] VITALS: BP 119/74
[2019-08-04] MEDS: GUAIFENESIN 600MG ER TABLET PO SCH (08:51)
[2019-08-04 08:59] VITALS: BP 119/74
[2019-08-04] MEDS: IPRATROPIUM/ALBUTEROL 0.5-3(2.5)MG/3ML NEB HHN SCH (09:46)
== END 2019-08-04 10:40 | disposition home or self-care (01) | DRG 720 ==
LOC: ER 10:24 → 7EST 12:11 → EDBEDREQ 12:17 → EDBEDREQSVC 12:17 → EDBEDREQTM 12:17 → ENRESERV 13:49 → 7WST 08-02 18:54
PROVIDERS: ADMIT Internal Medicine; ATTEND Internal Medicine
DX: A41.9 Sepsis, unspecified organism (principal); J96.00 Acute respiratory failure, unspecified whether with hypoxia or hypercapnia; E87.2 Acidosis; N28.1 Cyst of kidney, acquired; C92.10 Chronic myeloid leukemia, BCR/ABL-positive, not having achieved remission; D25.9 Leiomyoma of uterus, unspecified; K76.0 Fatty (change of) liver, not elsewhere classified; R19.7 Diarrhea, unspecified; K57.90 Diverticulosis of intestine, part unspecified, without perforation or abscess without bleeding; I10 Essential (primary) hypertension; J06.9 Acute upper respiratory infection, unspecified; E66.9 Obesity, unspecified; J45.909 Unspecified asthma, uncomplicated; Z82.49 Family history of ischemic heart disease and other diseases of the circulatory system; Z86.73 Personal history of transient ischemic attack (TIA), and cerebral infarction without residual deficits; Z79.899 Other long term (current) drug therapy; Z79.82 Long term (current) use of aspirin; Z80.8 Family history of malignant neoplasm of other organs or systems; Z71.3 Dietary counseling and surveillance; Z92.21 Personal history of antineoplastic chemotherapy; Z68.38 Body mass index [BMI] 38.0-38.9, adult
CPT/HCPCS: 36415; 36600; 71045; 74177; 80053; 81003; 82375; 82805; 83605; 84145; 84484; 85025; 85379; 87635; 87804; 93005; 96374; 99291; J2185; J2270; J2405; J2543; J3370; J7030; J7060; Q9967

== ENCOUNTER 2019-10-08 04:29 | Inpatient (IN) | payer MEDICAID ==
[~2019-10-08] VITALS: Ht 172.7 cm; Wt 108.9 kg
[2019-10-08] VITALS (8 sets, daily range): BP systolic 126–144; BP diastolic 80–94
[~2019-10-08 04:29] MED LIST changes: +BENZ-16 MT; +METO-293 MT
[2019-10-08] MEDS ORDERED: ONDANSETRON HCL 4MG/2ML INJ IV STA (04:44)
[2019-10-08] MEDS ORDERED: SODIUM CHLORIDE 0.9% 1000ML BAG (SEPSIS BOLUS) IV ONE (04:45)
[2019-10-08] MEDS ORDERED: MORPHINE SULFATE 4 MG/ML CPJ (NOT FOR IM USE) IV ONE (05:30)
[2019-10-08 05:53] LABS: HEMATOCRIT. 36.7 % (36.0-48.0); HEMOGLOBIN. 12.6 g/dL (12.0-16.0); MEAN CORPUSCULAR HEMOGLOBIN 38.6 pg (28.0-32.0); MEAN CORPUSCULAR VOLUME 112.3 fL (81.0-99.0); MEAN PLATELET VOLUME 8.2 fl (7.4-10.4); PLATELET 310 x1000/uL (130-400); RED BLOOD CELL COUNT 3.27 mill/uL (4.2-5.4); RED CELL DISTRIBUTION WIDTH 27.6 % (11.6-14.6)
[2019-10-08 06:00] LABS: CLARITY URINE CLEAR (CLEAR); COLOR URINE DARK YELLOW (YELLOW); KETONES URINE 3+ (NEGATIVE); LEUKOCYTE ESTERASE URINE TRACE (NEGATIVE); NITRITE URINE NEGATIVE (NEGATIVE); OCCULT BLOOD URINE NEGATIVE (NEGATIVE); PH URINE 5.5 (4.5-8.0); PROTEIN URINE 1+ (NEGATIVE); SPECIFIC GRAVITY URINE 1.019 (1.005-1.030)
[2019-10-08 06:03] LABS: CHLORIDE 99 mEq/L (98-107)
[2019-10-08 06:12] LABS: INR 1.1; PROTHROMBIN TIME 11.4 sec (9.6-11.0)
[2019-10-08 06:30] LABS: PLATELET ESTIMATE NORMAL
[2019-10-08] MEDS ORDERED: METRONIDAZOLE 500 MG PREMIX 100 ML IV ONE (06:45)
[2019-10-08] MEDS ORDERED: CEFTRIAXONE 1 G PREMIX 50 ML IV ONE (06:45)
[2019-10-08] MEDS: ONDANSETRON HCL 4MG/2ML INJ IV PRN ×3 (10:41→21:39)
[2019-10-08] MEDS: MORPHINE SULFATE 2 MG/ML CPJ (NOT FOR IM USE) IV PRN ×3 (10:41→19:30)
[2019-10-08] MEDS: DEXT 5%/0.45% NACL 1000ML 1,000 ML IV SCH ×2 (14:03→23:20)
[2019-10-09] VITALS (11 sets, daily range): BP systolic 122–184; BP diastolic 59–96
[2019-10-09] MEDS: MORPHINE SULFATE 2 MG/ML CPJ (NOT FOR IM USE) IV PRN ×5 (01:23→19:34)
[2019-10-09] MEDS: ONDANSETRON HCL 4MG/2ML INJ IV PRN ×3 (04:05→18:09)
[2019-10-09 10:23] LABS: HEMATOCRIT. 31.7 % (36.0-48.0); HEMOGLOBIN. 11.1 g/dL (12.0-16.0); MEAN CORPUSCULAR HEMOGLOBIN 39.5 pg (28.0-32.0); MEAN CORPUSCULAR VOLUME 112.7 fL (81.0-99.0); MEAN PLATELET VOLUME 8.2 fl (7.4-10.4); PLATELET 267 x1000/uL (130-400); RED BLOOD CELL COUNT 2.82 mill/uL (4.2-5.4); RED CELL DISTRIBUTION WIDTH 27.9 % (11.6-14.6)
[2019-10-09 10:34] LABS: CHLORIDE 100 mEq/L (98-107)
[2019-10-09] MEDS: DEXT 5%/0.45% NACL 1000ML 1,000 ML IV SCH (12:40)
[2019-10-09 13:31] LABS: ATYPICAL LYMPHOCYTES 1
[2019-10-09 13:32] LABS: PLATELET ESTIMATE NORMAL
[2019-10-10] VITALS (13 sets, daily range): BP systolic 107–141; BP diastolic 71–99
[2019-10-10] MEDS: ONDANSETRON HCL 4MG/2ML INJ IV PRN ×3 (00:28→16:03)
[2019-10-10] MEDS: MORPHINE SULFATE 2 MG/ML CPJ (NOT FOR IM USE) IV PRN ×5 (00:29→20:22)
[2019-10-10] MEDS: DEXT 5%/0.45% NACL 1000ML 1,000 ML IV SCH ×2 (02:00→15:39)
[2019-10-10 06:56] LABS: HEMATOCRIT. 29.7 % (36.0-48.0); HEMOGLOBIN. 10.5 g/dL (12.0-16.0); MEAN CORPUSCULAR HEMOGLOBIN 39.8 pg (28.0-32.0); MEAN CORPUSCULAR VOLUME 112.5 fL (81.0-99.0); MEAN PLATELET VOLUME 8.3 fl (7.4-10.4); PLATELET 256 x1000/uL (130-400); RED BLOOD CELL COUNT 2.64 mill/uL (4.2-5.4); RED CELL DISTRIBUTION WIDTH 27.6 % (11.6-14.6)
[2019-10-10 07:01] LABS: CHLORIDE 99 mEq/L (98-107)
[2019-10-10 07:12] LABS: LDL CHOLESTEROL 35 mg/dL (5-100)
[2019-10-10 07:13] LABS: HDL CHOLESTEROL 60 mg/dL (40-59)
[2019-10-10 08:23] LABS: HEPATITIS B SURFACE ANTIGEN NEGATIVE
[2019-10-10 08:52] LABS: HEPATITIS A AB IGM NEGATIVE (NEGATIVE)
[2019-10-10] MEDS ORDERED: POTASSIUM CHLORIDE 20MEQ TABLET SR PO ONE ×2 (10:45)
[2019-10-10] MEDS: METOCLOPRAMIDE HCL 10MG TABLET PO PRN ×2 (10:57→20:21)
[2019-10-10] MEDS ORDERED: POTASSIUM CHLORIDE 20MEQ TABLET SR PO NR (11:00)
[2019-10-10 16:29] LABS: PLATELET ESTIMATE NORMAL
[2019-10-11] VITALS (10 sets, daily range): BP systolic 121–149; BP diastolic 67–98
[2019-10-11] MEDS: ONDANSETRON HCL 4MG/2ML INJ IV PRN ×4 (04:24→19:35)
[2019-10-11] MEDS: MORPHINE SULFATE 2 MG/ML CPJ (NOT FOR IM USE) IV PRN ×5 (04:29→22:10)
[2019-10-11] MEDS: DEXT 5%/0.45% NACL 1000ML 1,000 ML IV SCH ×3 (04:33→22:11)
[2019-10-11] MEDS: METOCLOPRAMIDE HCL 10MG TABLET PO PRN ×2 (08:26→19:34)
[2019-10-11] MEDS ORDERED: BISACODYL 10MG SUPP PR NR (11:00)
[2019-10-11 17:10] LABS: CHLORIDE 100 mEq/L (98-107)
[2019-10-11] MEDS ORDERED: ZOLPIDEM TARTRATE 5MG TABLET PO PRN (21:00)
[2019-10-11] MEDS: METOCLOPRAMIDE HCL 10MG/2ML VIAL IV SCH (23:42)
[2019-10-12] VITALS: BP 130/87
[2019-10-12 02:00] VITALS: BP 127/89
[2019-10-12 04:00] VITALS: BP 115/82
[2019-10-12] MEDS: METOCLOPRAMIDE HCL 10MG/2ML VIAL IV SCH (06:34)
[2019-10-12] MEDS: MORPHINE SULFATE 2 MG/ML CPJ (NOT FOR IM USE) IV PRN (06:40)
[2019-10-12 08:00] VITALS: BP 126/61
[2019-10-12] MEDS ORDERED: POTASSIUM CHLORIDE 20MEQ TABLET SR PO NR (09:15)
[2019-10-12 09:36] VITALS: BP 115/75
[2019-10-12 10:30] VITALS: BP 115/75
== END 2019-10-12 11:45 | disposition home or self-care (01) | DRG 282 ==
LOC: ER 04:29 → ENRESERV 08:02 → 3WST 08:19 → EDBEDREQSVC 08:25 → EDBEDREQ 08:25 → EDBEDREQTM 08:25 → 3WST 10:05
PROVIDERS: ADMIT Internal Medicine; ATTEND Internal Medicine
DX: K85.90 Acute pancreatitis without necrosis or infection, unspecified (principal); E87.2 Acidosis; C92.10 Chronic myeloid leukemia, BCR/ABL-positive, not having achieved remission; R16.0 Hepatomegaly, not elsewhere classified; E66.01 Morbid (severe) obesity due to excess calories; R18.8 Other ascites; E87.1 Hypo-osmolality and hyponatremia; K76.0 Fatty (change of) liver, not elsewhere classified; J45.909 Unspecified asthma, uncomplicated; I10 Essential (primary) hypertension; K75.9 Inflammatory liver disease, unspecified; F40.240 Claustrophobia; Z86.73 Personal history of transient ischemic attack (TIA), and cerebral infarction without residual deficits; Z68.36 Body mass index [BMI] 36.0-36.9, adult; Z92.21 Personal history of antineoplastic chemotherapy; Z82.49 Family history of ischemic heart disease and other diseases of the circulatory system; Z80.8 Family history of malignant neoplasm of other organs or systems; Z71.89 Other specified counseling
CPT/HCPCS: 36415; 71045; 74176; 76700; 80048; 80053; 80061; 80076; 81003; 82248; 83605; 83880; 84145; 84484; 85025; 86332; 86705; 86709; 86803; 87340; 93005; 99285; J0696; J2270; J2405; J2765; J3490; J7030; J8597

== ENCOUNTER 2019-11-26 18:53 | Inpatient (IN) | payer MEDICAID ==
[~2019-11-26] VITALS: Ht 172.7 cm; Wt 80.0 kg
[2019-11-26 22:55] LABS: HEMATOCRIT. 32.9 % (36.0-48.0); HEMOGLOBIN. 11.2 g/dL (12.0-16.0); MEAN CORPUSCULAR HEMOGLOBIN 39.8 pg (28.0-32.0); MEAN CORPUSCULAR VOLUME 117.3 fL (81.0-99.0); MEAN PLATELET VOLUME 8.4 fl (7.4-10.4); PLATELET 278 x1000/uL (130-400); RED BLOOD CELL COUNT 2.81 mill/uL (4.2-5.4)
[2019-11-26 22:58] LABS: CHLORIDE 109 mEq/L (98-107)
[2019-11-26 23:18] LABS: PLATELET ESTIMATE NORMAL
[2019-11-26] MEDS ORDERED: ONDANSETRON HCL 4MG/2ML INJ IV STA (23:23)
[2019-11-26] MEDS ORDERED: MORPHINE SULFATE 4 MG/ML CPJ (NOT FOR IM USE) IV STA (23:23)
[2019-11-27] MEDS ORDERED: SODIUM CHLORIDE 0.9% 1,000 ML IV ONE (03:03)
[2019-11-27] MEDS ORDERED: ENOXAPARIN 80MG/0.8ML SYR SUBCUT ONE (03:15)
[2019-11-27] MEDS ORDERED: IOHEXOL-350 100 ML BOTTLE ONE (05:51)
[2019-11-27] MEDS ORDERED: MORPHINE SULFATE 2 MG/ML CPJ (NOT FOR IM USE) IV PRN (07:45)
[2019-11-27] MEDS ORDERED: ACETAMINOPHEN 325MG TABLET PO PRN (08:15)
[2019-11-27] MEDS ORDERED: ONDANSETRON HCL 4MG/2ML INJ IV PRN (08:15)
[2019-11-27] MEDS ORDERED: OMEPRAZOLE 20MG CAPSULE EXTENDED RELEASE PO SCH (09:00)
[2019-11-27] MEDS ORDERED: MORPHINE SULFATE 2 MG/ML CPJ (NOT FOR IM USE) IV ONE (14:15)
[2019-11-27 16:30] VITALS: BP 108/69
[2020-01-18] MEDS ORDERED: IMAT100T2 PO (22:20)
== END 2019-11-27 08:41 | disposition left against medical advice (07) | DRG 243 ==
LOC: ER 18:53 → MICUSO 11-27 03:05 → EDBEDREQ 11-27 03:31 → EDBEDREQDT 11-27 03:31 → EDBEDREQTM 11-27 03:31 → CANRESERV 11-27 08:12 → ENRESERV 11-27 08:12 → ER 11-27 08:41 → EDBEDREQSVC 11-27 08:59
PROVIDERS: ADMIT Internal Medicine; ATTEND Internal Medicine
DX: K21.9 Gastro-esophageal reflux disease without esophagitis (principal); C92.00 Acute myeloblastic leukemia, not having achieved remission; E87.2 Acidosis; J45.909 Unspecified asthma, uncomplicated; K76.0 Fatty (change of) liver, not elsewhere classified; E43 Unspecified severe protein-calorie malnutrition; I10 Essential (primary) hypertension; Z53.29 Procedure and treatment not carried out because of patient's decision for other reasons; R74.0 Nonspecific elevation of levels of transaminase and lactic acid dehydrogenase [LDH]; E87.8 Other disorders of electrolyte and fluid balance, not elsewhere classified; Z79.899 Other long term (current) drug therapy; Z79.82 Long term (current) use of aspirin; Z86.73 Personal history of transient ischemic attack (TIA), and cerebral infarction without residual deficits; Z82.49 Family history of ischemic heart disease and other diseases of the circulatory system; Z80.8 Family history of malignant neoplasm of other organs or systems; Z68.26 Body mass index [BMI] 26.0-26.9, adult
CPT/HCPCS: 36415; 71045; 71275; 74176; 76705; 80053; 83605; 83880; 84484; 85025; 93005; 99291; J1650; J2270; J2405; J7030; Q9967

== ENCOUNTER 2019-12-08 17:23 | Emergency (ER) | payer MEDICAID ==
[~2019-12-08] VITALS: Ht 167.6 cm; Wt 100.0 kg
[2019-12-08 17:27] VITALS: BP 153/95
== END 2019-12-08 18:00 | disposition left against medical advice (07) ==
LOC: ER 17:41
DX: J45.909 Unspecified asthma, uncomplicated (principal); I10 Essential (primary) hypertension; Z86.73 Personal history of transient ischemic attack (TIA), and cerebral infarction without residual deficits; Z85.9 Personal history of malignant neoplasm, unspecified; Z79.899 Other long term (current) drug therapy; Z79.82 Long term (current) use of aspirin
CPT/HCPCS: 99281

== ENCOUNTER 2020-01-12 11:42 | Emergency (ER) | payer MEDICAID ==
[~2020-01-12] VITALS: Ht 172.7 cm; Wt 90.7 kg
[2020-01-12] MEDS ORDERED: SODIUM CHLORIDE 0.9% 1,000 ML IV ONE (12:07)
[2020-01-12] MEDS ORDERED: MORPHINE SULFATE 4 MG/ML CPJ (NOT FOR IM USE) IV STA (12:07)
[2020-01-12] MEDS ORDERED: ONDANSETRON HCL 4MG/2ML INJ IV STA (12:07)
[2020-01-12 12:36] LABS: HEMATOCRIT. 36.4 % (36.0-48.0); HEMOGLOBIN. 12.3 g/dL (12.0-16.0); MEAN CORPUSCULAR HEMOGLOBIN 38.7 pg (28.0-32.0); MEAN CORPUSCULAR VOLUME 114.6 fL (81.0-99.0); PLATELET 202 x1000/uL (130-400); RED BLOOD CELL COUNT 3.18 mill/uL (4.2-5.4); RED CELL DISTRIBUTION WIDTH 21.6 % (11.6-14.6)
[2020-01-12 12:42] LABS: CHLORIDE 105 mEq/L (98-107)
[2020-01-12 12:52] LABS: INR 1.4; PARTIAL THROMBOPLASTIN TIME 29.3 sec (23.4-31.0); PROTHROMBIN TIME 14.3 sec (9.6-11.0)
[2020-01-12 13:16] LABS: PLATELET ESTIMATE NORMAL
[2020-01-12] MEDS ORDERED: ASPIRIN 325MG EC TABLET PO ONE (14:15)
[2020-01-12] MEDS ORDERED: MORPHINE SULFATE 4 MG/ML CPJ (NOT FOR IM USE) IV ONE (15:45)
[2020-01-12 17:51] VITALS: BP 134/87
[2020-01-18] MEDS ORDERED: IMAT100T2 PO (22:20)
== END 2020-01-12 19:11 | disposition short-term general hospital (02) ==
LOC: ER 11:42 → CANBEDREQ 19:41
DX: R47.81 Slurred speech (principal); G45.9 Transient cerebral ischemic attack, unspecified; M79.605 Pain in left leg; W18.39XA Other fall on same level, initial encounter; Y93.89 Activity, other specified; Y92.89 Other specified places as the place of occurrence of the external cause; Y99.8 Other external cause status; J45.909 Unspecified asthma, uncomplicated; I10 Essential (primary) hypertension; Z79.82 Long term (current) use of aspirin; Z79.899 Other long term (current) drug therapy
CPT/HCPCS: 36415; 70450; 71045; 73502; 73560; 73610; 73630; 80053; 83880; 84484; 85025; 85610; 85730; 93005; 93970; 96361; 96374; 96375; 96376; 99285; J2270; J2405; J7030

== ENCOUNTER 2020-02-17 22:30 | Emergency (ER) | payer MEDICAID ==
[~2020-02-17] VITALS: Ht 167.6 cm; Wt 78.0 kg
[~2020-02-17 22:30] MED LIST changes: -ASPI-1158 PO; -BENZ-16 MT; -HYDR1TAB4 PO; +IMAT100T2 PO; -IMAT100T9 PO; -IMAT400T2 MT; -IMAT400T2 PO
[2020-02-18 00:12] LABS: BASOPHILS % 1.1 % (0.0-2.0); EOSINOPHILS % 0.6 % (0.0-5.0); HEMATOCRIT. 31.7 % (36.0-48.0); HEMOGLOBIN. 10.3 g/dL (12.0-16.0); LYMPHOCYTES % 18.6 % (20.0-50.0); MEAN CORPUSCULAR HEMOGLOBIN 39.2 pg (28.0-32.0); MEAN CORPUSCULAR VOLUME 120.1 fL (81.0-99.0); MEAN PLATELET VOLUME 8.3 fl (7.4-10.4); MONOCYTES % 14.4 % (2.0-8.0); NEUTROPHILS % 65.3 % (40.0-76.0); PLATELET 442 x1000/uL (130-400); RED BLOOD CELL COUNT 2.64 mill/uL (4.2-5.4); RED CELL DISTRIBUTION WIDTH 17.9 % (11.6-14.6)
[2020-02-18 00:16] LABS: CHLORIDE 115 mEq/L (98-107)
[2020-02-18 00:20] LABS: INR 1.2; PARTIAL THROMBOPLASTIN TIME 29.6 sec (23.4-31.0); PROTHROMBIN TIME 12.9 sec (9.6-11.0)
[2020-02-18 00:46] LABS: PLATELET ESTIMATE INCREASED
[2020-02-18] MEDS ORDERED: ASPIRIN 81MG TABLET PO ONE (01:00)
[2020-02-18] MEDS ORDERED: MORPHINE SULFATE 4 MG/ML CPJ (NOT FOR IM USE) IV STA (02:13)
[2020-02-18] MEDS ORDERED: ONDANSETRON HCL 4MG/2ML INJ IV STA (02:13)
[2020-02-18 02:48] LABS: CLARITY URINE CLOUDY (CLEAR); COLOR URINE DARK YELLOW (YELLOW); KETONES URINE TRACE (NEGATIVE); LEUKOCYTE ESTERASE URINE TRACE (NEGATIVE); NITRITE URINE NEGATIVE (NEGATIVE); OCCULT BLOOD URINE NEGATIVE (NEGATIVE); PROTEIN URINE NEGATIVE (NEGATIVE); SPECIFIC GRAVITY URINE 1.016 (1.005-1.030)
[2020-02-18] MEDS: MORPHINE SULFATE 2 MG/ML CPJ (NOT FOR IM USE) IV PRN ×2 (08:36→14:02)
[2020-02-18 14:02] VITALS: BP 109/68
== END 2020-02-18 14:12 | disposition left against medical advice (07) ==
LOC: ER 22:30 → EDBEDREQ 02-18 02:35 → ER 02-18 14:12 → CANBEDREQ 02-18 16:02
DX: R53.1 Weakness (principal); R42 Dizziness and giddiness; J45.909 Unspecified asthma, uncomplicated; I10 Essential (primary) hypertension; Z87.891 Personal history of nicotine dependence; Z79.899 Other long term (current) drug therapy
CPT/HCPCS: 36415; 71045; 80053; 81003; 83880; 84484; 85025; 85610; 85730; 87086; 93005; 93970; 96374; 96375; 96376; 99285; J2270; J2405; Z7610

== ENCOUNTER 2020-03-05 17:26 | Emergency (ER) | payer MEDICAID ==
[~2020-03-05] VITALS: Ht 175.3 cm; Wt 86.0 kg
[~2020-03-05 17:26] MED LIST changes: +ALBU6.7H9 INH; +APIX5TAB MT; +APIX5TAB PO; -METO-293 MT; -PROIN3 IH
[2020-03-05 18:37] LABS: HEMATOCRIT. 32.8 % (36.0-48.0); HEMOGLOBIN. 11.1 g/dL (12.0-16.0); MEAN CORPUSCULAR HEMOGLOBIN 38.7 pg (28.0-32.0); MEAN CORPUSCULAR VOLUME 114.5 fL (81.0-99.0); PLATELET 316 x1000/uL (130-400); RED BLOOD CELL COUNT 2.86 mill/uL (4.2-5.4); RED CELL DISTRIBUTION WIDTH 15.9 % (11.6-14.6)
[2020-03-05 18:45] LABS: CHLORIDE 117 mEq/L (98-107)
[2020-03-05 18:58] LABS: ETHANOL BLOOD 370 mg/dL
[2020-03-05 19:25] LABS: PLATELET ESTIMATE NORMAL
[2020-03-05 20:12] LABS: CLARITY URINE CLEAR (CLEAR); COLOR URINE YELLOW (YELLOW); KETONES URINE NEGATIVE (NEGATIVE); LEUKOCYTE ESTERASE URINE TRACE (NEGATIVE); NITRITE URINE NEGATIVE (NEGATIVE); OCCULT BLOOD URINE 1+ (NEGATIVE); PH URINE 5.5 (4.5-8.0); PROTEIN URINE NEGATIVE (NEGATIVE); SPECIFIC GRAVITY URINE 1.009 (1.005-1.030); UROBILINOGEN URINE 0.2 E.U./dL (0.2-1.0)
[2020-03-05 20:34] LABS: *AMPHETAMINES SCREEN URINE NEGATIVE (NEGATIVE); *BARBITURATES SCREEN URINE NEGATIVE (NEGATIVE); *BENZODIAZEPINES SCREEN URINE NEGATIVE (NEGATIVE); *COCAINE SCREEN URINE NEGATIVE (NEGATIVE); METHADONE URINE SCREEN NEGATIVE (NEGATIVE); OPIATES URINE SCREEN NEGATIVE (NEGATIVE)
[2020-03-05 20:36] LABS: PHENCYCLIDINE URINE SCREEN NEGATIVE (NEGATIVE)
[2020-03-05 20:37] LABS: CANNABINOID URINE SCREEN NEGATIVE (NEGATIVE)
[2020-03-06 01:30] VITALS: BP 121/78
== END 2020-03-06 01:35 | disposition home or self-care (01) ==
LOC: ER 17:26
DX: F10.129 Alcohol abuse with intoxication, unspecified (principal); Y90.8 Blood alcohol level of 240 mg/100 ml or more; J44.9 Chronic obstructive pulmonary disease, unspecified
CPT/HCPCS: 36415; 80053; 80305; 80320; 81003; 83880; 84484; 85025; 93005; 99285; G0480

== ENCOUNTER 2020-03-09 22:25 | Emergency (ER) | payer MEDICAID ==
[~2020-03-09] VITALS: Ht 165.1 cm; Wt 64.0 kg
[2020-03-09] MEDS ORDERED: SODIUM CHLORIDE 0.9% 1,000 ML IV ONE (23:30)
[2020-03-09 23:53] LABS: BASOPHILS % 0.9 % (0.0-2.0); EOSINOPHILS % 0.5 % (0.0-5.0); HEMATOCRIT. 34.4 % (36.0-48.0); HEMOGLOBIN. 11.7 g/dL (12.0-16.0); MEAN CORPUSCULAR HEMOGLOBIN 38.8 pg (28.0-32.0); MEAN CORPUSCULAR VOLUME 114.5 fL (81.0-99.0); MEAN PLATELET VOLUME 8.5 fl (7.4-10.4); MONOCYTES % 9.4 % (2.0-8.0); NEUTROPHILS % 65.2 % (40.0-76.0); PLATELET 187 x1000/uL (130-400); RED CELL DISTRIBUTION WIDTH 15.8 % (11.6-14.6)
[2020-03-10 00:01] LABS: CHLORIDE 113 mEq/L (98-107); INR 1.5; PROTHROMBIN TIME 15.3 sec (9.6-11.0)
[2020-03-10 00:09] LABS: CREATINE KINASE 275 IU/L (26-192)
[2020-03-10 00:30] LABS: ETHANOL BLOOD 375 mg/dL
[2020-03-10 00:53] LABS: PLATELET ESTIMATE NORMAL
[2020-03-10] MEDS ORDERED: FOLIC ACID 1 MG, THIAMINE HCL 100 MG, MVI, ADULT NO.1 10 ML in DEXTROSE 5% WATER 1,000 ML IV ONE ×4 (02:00)
[2020-03-10 02:27] VITALS: BP 124/82
== END 2020-03-10 03:23 | disposition home or self-care (01) ==
LOC: ER 22:25
DX: T51.0X1A Toxic effect of ethanol, accidental (unintentional), initial encounter (principal); Y93.89 Activity, other specified; Y90.8 Blood alcohol level of 240 mg/100 ml or more; J44.9 Chronic obstructive pulmonary disease, unspecified; Z86.73 Personal history of transient ischemic attack (TIA), and cerebral infarction without residual deficits; Z79.899 Other long term (current) drug therapy; E86.0 Dehydration; G92 Toxic encephalopathy
CPT/HCPCS: 36415; 70450; 71045; 76705; 80053; 80320; 82550; 83690; 85025; 85610; 93005; 96361; 96365; 99285; C1893; J3411; J3490; J7030; J7070; Z7610; G0480